=== PATIENT | male | born 1955 | race Caucasian/White ===

== ENCOUNTER 2017-01-03 13:20 | Day surgery (SDC) | payer OTHER ==
[~2017-01-03 13:20] MED LIST: Buffered Lidocaine 0.9% SYRIN* 5 ML/SYR SYRINGE INTRADERM ONE; Buffered Lidocaine 0.9% SYRIN* 5 ML/SYR SYRINGE ONE; Famotidine IV* 10 MG/ML 2 ML (20 mg) IV ONE; Famotidine IV* 10 MG/ML 2 ML (20 mg) ONE; ceFAZolin 2 GM PREMIX(*) 2 GM/50 ML BAG IVPB ONE
[2017-01-03] MEDS ORDERED: Midazolam* 1 MG/ML 5 ML VIAL (5 MG) ONE (15:05)
[2017-01-03] MEDS ORDERED: fentaNYL* 50 MCG/ML 2 ML VIAL (100 MCG VIAL) ONE (15:05)
[2017-01-03] MEDS ORDERED: Bupivacaine 0.5% W/EPI SDV* 30 ML VIAL ONE (16:25)
[2017-01-03] MEDS ORDERED: Lidocaine 1% INJ* 10 MG/ML 30 ML SDV ONE (16:25)
[2017-01-03] MEDS ORDERED: Midazolam* 1 MG/ML 2 ML VIAL (2 MG) ONE (16:54)
[2017-01-03] MEDS ORDERED: KETAMINE HCL* 50 MG/ML 10 ML VIAL ONE (16:56)
[2017-01-03] MEDS ORDERED: DiMENhydriNATE IV* 50 MG/ML VIAL IV PUSH PRN (17:05)
[2017-01-03] MEDS ORDERED: oxyCODONE TAB* 5 MG TAB PO PRN (17:05)
[2017-01-03] MEDS ORDERED: HYDROmorphone* 1 MG/ML 1 ML SYR IV PRN (17:05)
[2017-01-03] MEDS ORDERED: Acetaminophen TAB* 325 MG PO PRN (17:05)
[2017-01-03] MEDS ORDERED: Propofol* 10 MG/ML 20 ML BTL IV PUSH ONE (17:09)
[2017-01-03] MEDS ORDERED: Lidocaine 2% PF * 5 ML VIAL ONE (17:09)
[2017-01-03] MEDS ORDERED: Ondansetron INJ* 2 MG/ML VIAL ONE (17:09)
[2017-01-03] MEDS ORDERED: Ketorolac INJ* 30 MG/ML 1 ML VIAL ONE (17:09)
--- NOTE | 2017-01-03 17:39 | SURGPN ---
Brief Operative Note - Surgery Procedures: Procedures OPERATIVE REPORT PRE-OP: Umbilical hernia POST-OP: Same PROCEDURE: Open repair with 6.[address] Hernia patch SURGEON: MD Tigre ANESTHESIA:Local with MAC Dr. Anderson ASST: DEBBIE Nunez IVF: 1 liter of crystalloid EBL: min SPECIMEN: none DRAIN: none WOUND CLASS: One COMPLICATIONS: none TO PACU
[2017-01-03 19:08] VITALS: BP 138/72
--- NOTE | 2017-01-04 08:46 | OP ---
CC: [facility]; Ryne Carvajal MD * DATE OF OPERATION: 01/03/17 - [facility] DATE OF : 57 SURGEON: Nghia Landeros MD DOT NET ARCHITECT: DEBBIE Gilmore ANESTHESIOLOGIST: Lottie Anderson MD ANESTHESIA: Local with monitored anesthesia care. PRE-OP DIAGNOSIS: Umbilical hernia. POST-OP DIAGNOSIS: Umbilical hernia. OPERATIVE PROCEDURE: Open repair with a 6.[address] Ventralex mesh placed intraperitoneally. ESTIMATED BLOOD LOSS: Minimal. SPECIMENS: None. WOUND CLASSIFICATION: I. COMPLICATIONS: None. DRAINS: None. DESCRIPTION OF PROCEDURE: Written and informed consent was obtained and the abdomen was marked with indelible ink and preoperative antibiotics were administered. The patient was taken to the operating room and placed in the supine position. Sequential compression devices and a warming blanket were applied. The abdomen was prepped and draped in a usual sterile fashion. Time-out verification was completed. Next, a 0.25% Marcaine was infiltrated just below the umbilicus in a circumferential area around the umbilicus. A semi-circular incision was made inferior to the umbilical curve and carried down to the fascia inferior to the umbilical stock. The stock was then encircled with a [id number] Elena drain and the skin was excised off hernia sac. We entered the peritoneum at this point and the skin was protected. The fascial edges appear to be no more than about 2 cm diameter defect. There was also a small fascial defect slightly inferior to the hernia and this was closed with a simple 0 Polysorb suture. Due to the rather thin appearance of the fascia in the size, a mesh was placed intraperitoneally. This 6.4 cm circular mesh and was sutured into position intraperitoneally with 4 separate 0 Polysorb horizontal mattress using the strap and mesh envelope in the usual fashion. I used the Securestrap to staple the mesh to the anterior abdominal wall in the spaces between the sutures. Hemostasis was assured. The ruby fascia was then closed over the mesh in a transverse orientation with interrupted 0 Polysorb suture. Additional marking was infiltrated. The skin and subcutaneous tissue was closed in layers of 3-0 and 4-0 Polysorb. Steri-strips and sterile dressings were applied. The patient tolerated the procedure well, was taken to the recovery room in stable condition. [id number]/[facility] #: [id number] RADHA
== END 2017-01-03 19:07 | disposition home or self-care (01) ==
LOC: OR 13:20
PROVIDERS: ATTEND Surgery
DX: K42.9 Umbilical hernia without obstruction or gangrene (principal); I10 Essential (primary) hypertension; Z85.820 Personal history of malignant melanoma of skin
CPT/HCPCS: C1776; C1781; J0690; J1885; J2001; J2250; J2405; J2704; J3010

== ENCOUNTER 2017-01-18 17:49 | Emergency (ER) | payer OTHER ==
[2017-01-18 17:55] VITALS: BP 143/75
[2017-01-18] MEDS ORDERED: predniSONE TAB* 20 MG PO ONE (20:50)
--- NOTE | 2017-01-18 21:02 | UC ---
Lower Extremity/Ankle HPI - HPI Summary HPI Summary: PAST HISTORY OF GOUT. FOUR DAYS OF WORSENING RIGHT GREAT TOE TENDERNESS REDNESS AND MILD SWELLING. PAIN AT KNUCKLES OF TOE. NO TRAUMA. - History of Current Complaint Chief Complaint: UCLowerExtremity Stated Complaint: LEFT ANKLE AND TOE COMPLAINT Time Seen by Provider: 01/18/17 19:50 Hx Obtained From: Patient, Family/Coke Crane Operator Onset/Duration: Gradual Onset, Lasting Days, Worse Since - DAILY Severity Initially: Mild Severity Currently: Moderate Aggravating Factor(s): Standing, Ambulation, Other - TOUCH Alleviating Factor(s): Nothing Able to Bear Weight: Yes - Risk Factors Gout Risk Factors: Age Over 40, Male DVT Risk Factors: Negative Septic Arthritis Risk Factor: Negative - Allergies/Home Medications Allergies/Adverse Reactions: Allergies Allergy/AdvReac Type Severity Reaction Status Date / Time Pravastatin [From Pravachol] Allergy Severe hives, Verified 01/03/17 12:27 swelling PMH/Surg Hx/FS Hx/Imm Hx Previously Healthy: Yes Other History Of: Negative For: Anticoagulant Therapy - Surgical History Surgical History: Yes Surgery Procedure, Year, and Place: lt hip replacement 2010. right hand/wrist ganglion cyst 2000. melanoma 2006. colonoscopies - Family History Known Family History: Positive: Other - GOUT - Social History Occupation: Employed Full-time Lives: With Family Alcohol Use: Weekly Alcohol Amount: approx. 1-4 beer most days Substance Use Type: None Smoking Status (MU): Never Smoked Tobacco Review of Systems Constitutional: Negative Skin: Rash - RIGHT GREAT TOE Eyes: Negative ENT: Negative Respiratory: Negative Cardiovascular: Negative Gastrointestinal: Negative Genitourinary: Negative Motor: Negative Neurovascular: Negative Musculoskeletal: Arthralgia - RIGHT GREAT TOE, Myalgia Neurological: Negative Psychological: Negative All Other Systems Reviewed And Are Negative: Yes Physical Exam Triage Information Reviewed: Yes Appearance: Well-Appearing, Well-Nourished, Pain Distress - MILD Vital Signs: Initial Vital Signs Temp 99.3 F 01/18/17 17:52 Pulse 82 01/18/17 17:52 Resp 18 01/18/17 17:52 BP 143/75 01/18/17 17:52 Pulse Ox 99 01/18/17 17:52 Vital Signs Reviewed: Yes Eye Exam: Normal ENT Exam: Normal ENT: Positive: Normal ENT inspection, Hearing grossly normal, TMs normal Dental Exam: Normal Neck exam: Normal Neck: Positive: Supple, Nontender, No Lymphadenopathy Respiratory Exam: Normal Respiratory: Positive: Chest non-tender, Lungs clear, Normal breath sounds, No respiratory distress, No accessory muscle use Cardiovascular Exam: Normal Cardiovascular: Positive: RRR, No Murmur, Pulses Normal Abdominal Exam: Normal Musculoskeletal: Positive: Strength Intact, ROM Intact, Other: - WARMTH TENDERNESS ERRYTHEMA MILD EDEMA RIGHT GREAT TOE Neurological Exam: Normal Psychological Exam: Normal Skin Exam: Normal Lower Extremity Course/Dx - Differential Dx/Diagnosis Differential Diagnosis/HQI/PQRI: Cellulitis, Gout, Sprain, Strain Provider Diagnoses: GOUT RIGHT GREAT TOE Discharge - Discharge Plan Condition: Stable Disposition: HOME Prescriptions: Colchicine* [Colcrys*] 0.6 mg PO DAILY #3 tab Patient Education Materials: Low Purine Diet (ED), Gout (ED) Referrals: Ryne Carvajal MD [Primary Care Provider] -
[2017-01-19 11:06] LABS: Hematocrit 42 % (42-52); Hemoglobin 13.5 g/dl (14.0-18.0); Mean Corpuscular HGB Conc 33 g/dl (31-36); Mean Corpuscular Hemoglobin 29 pg (27-31); Mean Corpuscular Volume 90 fL (80-94); Mean Platelet Volume 8 um3 (7.4-10.4); Red Cell Distribution Width 13 % (10.5-15); White Blood Count 12.1 10^3/ul (3.5-10.8)
== END 2017-01-18 21:15 | disposition home or self-care (01) ==
LOC: UCEAST 17:49
DX: M10.9 Gout, unspecified (principal)
CPT/HCPCS: 36415; 84550; 85025; 99212; G0463; J7512

== ENCOUNTER 2017-04-03 19:36 | Emergency (ER) | payer OTHER ==
[2017-04-03 20:09] VITALS: BP 169/91
[2017-04-03] MEDS ORDERED: predniSONE TAB* 20 MG PO ONE (20:33)
[2017-04-03] MEDS ORDERED: diPHENhydraMINE PO* 50 MG PO ONE (20:33)
--- NOTE | 2017-04-03 20:38 | UC ---
Skin Complaint HPI - HPI Summary HPI Summary: raised red itching area behind left ear, some on left shoulder and arm - History of Current Complaint Chief Complaint: UCSkin Time Seen by Provider: 04/03/17 20:24 Stated Complaint: INSECT BITE Hx Obtained From: Patient Onset/Duration: Sudden Onset, Lasting Days - 1, Still Present Timing: Constant Onset Severity: Moderate Current Severity: Moderate Location: Discrete Character: Pruritus, Hives, Redness, Raised Aggravating: Nothing Alleviating: Nothing Associated Signs & Symptoms: Positive: Negative, Rash Related History: Insect Bite/Sting - Allergy/Home Medications Allergies/Adverse Reactions: Allergies Allergy/AdvReac Type Severity Reaction Status Date / Time Pravastatin [From Pravachol] Allergy Severe hives, Verified 04/03/17 20:09 swelling Review of Systems Constitutional: Negative Skin: Rash - behind left ear, left shoulder, arm Eyes: Negative ENT: Negative Respiratory: Negative Cardiovascular: Negative Gastrointestinal: Negative Genitourinary: Negative Motor: Negative Neurovascular: Negative Musculoskeletal: Negative Neurological: Negative Psychological: Negative All Other Systems Reviewed And Are Negative: Yes PMH/Surg Hx/FS Hx/Imm Hx Previously Healthy: No Endocrine History: Dyslipidemia Cardiovascular History: Hypertension Other History Of: Negative For: Anticoagulant Therapy - Surgical History Surgical History: Yes Surgery Procedure, Year, and Place: lt hip replacement 2010. right hand/wrist ganglion cyst 1999. melanoma 2006. colonoscopies, HERNIA REPAIR 12/2016 - Family History Known Family History: Positive: Other - GOUT - Social History Occupation: Employed Full-time Lives: With Family Alcohol Use: Occasionally Alcohol Amount: approx. 1-4 beer most days Substance Use Type: None Smoking Status (MU): Never Smoked Tobacco Physical Exam Triage Information Reviewed: Yes Appearance: Well-Appearing, No Pain Distress, Well-Nourished Vital Signs: Initial Vital Signs Temp 97.7 F 04/03/17 20:05 Pulse 73 04/03/17 20:05 Resp 16 04/03/17 20:05 BP 169/91 04/03/17 20:05 Pulse Ox 99 04/03/17 20:05 Vital Signs Reviewed: Yes Eye Exam: Normal Eyes: Positive: Conjunctiva Clear ENT Exam: Normal ENT: Positive: Normal ENT inspection, Hearing grossly normal, TMs normal. Negative: Nasal congestion, Nasal drainage, Trismus, Muffled/hoarse voice Dental Exam: Normal Neck exam: Normal Neck: Positive: Supple, Nontender, No Lymphadenopathy Respiratory Exam: Normal Respiratory: Positive: Chest non-tender, No respiratory distress, No accessory muscle use Cardiovascular Exam: Normal Cardiovascular: Positive: RRR, Pulses Normal, Brisk Capillary Refill Musculoskeletal Exam: Normal Musculoskeletal: Positive: Strength Intact, ROM Intact, No Edema Neurological Exam: Normal Neurological: Positive: Alert Psychological Exam: Normal Psychological: Positive: Normal Response To Family Skin Exam: Other Skin: Positive: rashes Course/Dx - Course Course Of Treatment: prednisone, benadryl, cool compress, follow bp with pcp in next 1-2 weeks - Differential Diagnoses - Skin Complaint Differential Diagnoses: Cellulitis, Contact Dermatitis, Local Allergic Reaction , Systemic Illness, Tick Born Illness - Diagnoses Provider Diagnoses: Localized allergic response posterior left ear, left shoulder, left arm Discharge - Discharge Plan Condition: Stable Disposition: HOME Prescriptions: predniSONE TAB* [Deltasone TAB*] 20 mg PO DAILY #15 tab Patient Education Materials: Prednisone (By mouth), Diphenhydramine (By mouth) , Contact Dermatitis (ED), Hypertension (ED) Referrals: Ryne Carvajal MD [Primary Care Provider] - 2 Weeks
== END 2017-04-03 21:03 | disposition home or self-care (01) ==
LOC: UCEAST 19:36
DX: T63.481A Toxic effect of venom of other arthropod, accidental (unintentional), initial encounter (principal); L50.9 Urticaria, unspecified; Y92.9 Unspecified place or not applicable; E78.5 Hyperlipidemia, unspecified; I10 Essential (primary) hypertension; Z96.642 Presence of left artificial hip joint; Z85.820 Personal history of malignant melanoma of skin
CPT/HCPCS: 99212; A9270-GY; G0463; J7512

== ENCOUNTER 2019-04-30 17:54 | Emergency (ER) | payer OTHER ==
--- OUTSIDE RECORDS SUMMARY | 2019-04-30 19:42 | XMS REPORT | Continuity of Care Document ---
:1955 External Reference #:[id number] Author Name DEBBIE Juares Address [address] [place] [address] Care Team Providers Name Role Phone Festus Major MD - Orthopaedic Care Team Information Director Corporate [phone] Surgery Ryne Carvajal MD - Family Medicine Care Team Information Director Corporate Nghia Landeros - Surgery Care Team Information Director Corporate [phone] Problems Active Problems Provider Date Pure hypercholesterolemia Ryne Carvajal M.D. Onset: 08/10/2006 Benign essential hypertension Ryne Carvajal M.D. Onset: 08/10/2006 Benign prostatic hypertrophy without outflow Ryne Carvajal M.D. Onset: 05/2007 obstruction Malignant melanoma of skin Ryne Carvajal M.D. Onset: 08/09/2007 Gout Ryne Carvajal M.D. Onset: 07/23/2009 Sprain of costal cartilage Ryne Carvajal M.D. Onset: 11/17/2011 Hyperlipidemia Ryne Carvajal M.D. Onset: 05/30/2013 Essential hypertension Ryne Carvajal M.D. Onset: 06/04/2015 Mixed hyperlipidemia Ryne Carvajal M.D. Onset: 06/04/2015 Benign neoplasm of colon Ryne Carvajal M.D. Onset: 12/03/2015 Social History Type Date Description Comments Sex Unknown Tobacco Use Start: Unknown Nonsmoker Tobacco Use Start: Unknown End: Unknown Patient is a former smoker Smoking Status Reviewed: 04/09/19 Patient is a former smoker Allergies, Adverse Reactions, Alerts Active Allergies Reaction Severity Comments Date Pravachol Generic Pravastatin - 04/06/2006 Rash Amlodipine swelling of face, swelling face, hands, 07/04/2017 hands, feet feet Metoprolol ? swelling, headache 12/12/2017 Medications Active Medications SIG Qnty Indications Ordering Provider Date Candesartan Cilexetil Take 1 tablet 30tabs I10 Ryne ARiaz Wei, 04/09/2019 nightly. M.D. 16mg Tablets Candesartan Cilexetil 1 by mouth every 30tabs I10 Ryne ARiaz Carvajal, 2018 8mg day in the M.D. Tablets evening Rosuvastatin Calcium 1 by mouth every 90tabs Ryne Carvajal, 06/09/2016 5mg day M.D. Tablets Ecasa 1 qd Ryne Carvajal, 325mg M.D. Immunizations CPT Code Status Date Vaccine Lot # [id number] Given 12/08/2016 Zostivax [id number] Given 03/19/2009 Tdap Tetanus, W Pertussis [id number] Vital Signs Date Vital Result Comment 04/09/2019 2:37pm BP Systolic 192 mmHg BP Diastolic 94 mmHg BP Systolic Recheck 180 mmHg BP Diastolic Recheck 82 mmHg Heart Rate 84 /min Body Temperature 98.2 F Height 61.5 inches 5'1.50" Weight 182.00 lb BMI (Body Mass Index) 33.8 kg/m2 03/26/2019 3:34pm BP Systolic 144 mmHg BP Diastolic 86 mmHg Heart Rate 76 /min Respiratory Rate 16 /min Height 61.5 inches 5'1.50" Weight 181.00 lb BMI (Body Mass Index) 33.6 kg/m2 Results Test Date Facility Test Result H/L Range Note Comprehensive Metabolic 03/12/2019 [facility]) Sodium 137 mEq/L 134-149 Prof Potassium 3.8 mEq/L 3.6-5.5 Chloride 103 mEq/L 94-112 Carbon Dioxide 25 mEq/L 21-32 Glucose 99 mg/dL 70-105 BUN 21 mg/dL 6-26 Creatinine 1.1 mg/dL 0.6-1.4 BUN/Creat Ratio 19.1 CALC 8.0-36.0 Calcium 9.7 mg/dL 8.6-10.2 Total Protein 7.7 g/dL 6.4-8.3 Albumin 5.0 g/dL 3.8-5.5 Globulin 2.7 g/dL 2.0-4.8 A/G Ratio 1.9 CALC 0.6-2.3 Alk. Phosphatase 60 U/L 22-95 Alt (SGPT) 25 U/L 7-35 Ast (Sgot) 25 U/L 5-34 Total Bilirubin 1.0 mg/dL 0.2-1.3 GFR Non- >60 ml/min/1.73m^ >=60 GFR >60 ml/min/1.73m^ >=60 Laboratory test 03/12/2019 [facility]) TSH 4.07 mIU/L 0.50-6.00 finding Lipid Profile 03/12/2019 [facility]) Cholesterol 264 mg/dL High 120-200 Triglycerides 282 mg/dL High 30-200 HDL Cholesterol 35 mg/dL 30-70 LDL (Calculated) 173 CALC High 0-129 VLDL Cholesterol 56 mg/dL High 0-50 HDL Risk Factor 7.5 CALC High 0.0-4.4 Laboratory test finding 03/12/2019 [facility]) PSA 1.8 ng/mL 0.0 -4.0 CBC Electronic [facility] 03/12/2019 [facility](a) WBC 8.5 x10^3/UL 4.0- 10.0 RBC 4.94 x10^6/UL 3.93-6.00 HGB 15.2 g/dL 12.0-17.0 HCT 44 % 35-50 MCV 89.1 fL 80.0-95.0 MCH 30.8 pg 25.6-32.2 MCHC 34.5 g/dL 32.2-36.0 RDW-CV 12.0 % 11.6-14.4 PLT 202 x10^3/UL 163-400 MPV 9.1 fL Low 9.4-12.4 Chad# 4.30 x10^3/UL 1.56-6.13 Lymph# 3.30 x10^3/UL 1.18-3.74 Long# 0.52 x10^3/UL 0.24-0.82 Eos # 0.3 x10^3/UL 0.0-0.5 Baso # 0.07 x10^3/UL 0.01-0.08 Chad% 50.7 % 34.0-70.0 Lymph % 38.8 % 20.0-52.0 Long% 6.1 % 5.0-12.0 Eos% 3.5 % 0.7-7.0 Baso% 0.8 % 0.1-1.2 Laboratory test 03/12/2019 [facility](a) LDL, Direct 150 mg/dL High 0-130 finding Laboratory test 10/12/2018 [facility] Hemoglobin A1c 5.3 % % 4.1- 5.7 finding (607)- - (Fma) Comprehensive 10/12/2018 [facility](a) Sodium 141 mEq/L 134-149 Metabolic Prof Potassium 4.9 mEq/L 3.6-5.5 Chloride 100 mEq/L 94-112 Carbon Dioxide 27 mEq/L 21-32 Glucose 123 mg/dL High 70-105 1 BUN 25 mg/dL 6-26 Creatinine 1.1 mg/dL 0.6-1.4 BUN/Creat Ratio 22.7 CALC 8.0-36.0 Calcium 10.2 mg/dL 8.6-10.2 Total Protein 7.6 g/dL 6.4-8.3 Albumin 5.1 g/dL 3.8-5.5 Globulin 2.5 g/dL 2.0-4.8 A/G Ratio 2.0 CALC 0.6-2.3 Alk. Phosphatase 58 U/L 22-95 Alt (SGPT) 32 U/L 7-35 Ast (Sgot) 23 U/L 5-34 Total Bilirubin 0.7 mg/dL 0.2-1.3 GFR Non- >60 ml/min/1.73m^ >=60 GFR >60 ml/min/1.73m^ >=60 Lipid Profile 10/12/2018 [facility](a) Cholesterol 204 mg/dL High 120-200 Triglycerides 180 mg/dL 30-200 HDL Cholesterol 38 mg/dL 30-70 LDL (Calculated) 130 CALC High 0-129 VLDL Cholesterol 36 mg/dL 0-50 HDL Risk Factor 5.4 CALC High 0.0-4.4 1 RESULTS VERIFIED BY REPEAT ANALYSIS Procedures Date Code Description Status 10/04/2017 [id number] Colonoscopy Completed 09/19/2012 [id number] Colonoscopy Completed 09/12/2007 [id number] Colonoscopy Completed Medical Devices Description No Information Available Encounters Type Date Location Provider Dx Diagnosis Office Visit 03/26/2019 [facility] Office Ryne Carvajal, I10 Essential ( primary) 3:30p M.D. hypertension Office Visit 03/12/2019 [facility] Office Ryne Carvajal, I10 Essential ( primary) 4:10p M.D. hypertension E78.2 Mixed hyperlipidemia N40.0 Benign prostatic hyperplasia without lower urinry tract symp E78.1 Pure hyperglyceridemia Assessments Date Code Description Provider 04/09/2019 I10 Essential (primary) hypertension DEBBIE Juares 03/26/2019 I10 Essential (primary) hypertension Ryne Carvajal M.D. 03/12/2019 I10 Essential (primary) hypertension Ryne Carvajal M.D. 03/12/2019 E78.2 Mixed hyperlipidemia Ryne Carvajal M.D. 03/12/2019 N40.0 Benign prostatic hyperplasia without lower Ryne Carvajal M.D. urinary tract sym 03/12/2019 E78.1 Pure hyperglyceridemia Ryne Carvajal M.D. 10/12/2018 E78.2 Mixed hyperlipidemia Ryne Carvajal M.D. 10/12/2018 R73.09 Other abnormal glucose Ryne Carvajal M.D. Plan of Treatment Future Appointment(s):04/23/2019 3:30 pm - DEBBIE Juares at [facility]04/09/2019 - Zabrina George PAI10 Essential (primary) hypertensionNew Medication:Candesartan Cilexetil 16 mg - Take 1 tablet nightly.Comments: Increase Candesartan to 16 mg nightly. Call with any side effects Follow up in 2 weeksAllComments:PCMHMedication Management Patient Understands medications he 's taking? Yes Are there Barriers to Adherence? No Has the patient been asked about herbal supplements and therapies, and OTC meds? Yes Care Plan1. Patient has been queried about patient's goals/preferences and functional/lifestyle goals at relevant visits. Yes If relevant, describe: N/A2. Treatment goals as explained to the patient: above3. Are there barriers to meeting treatment goals? No If Yes, please describe:4. Self-Management goals as described to the patient: Yes As always, we strongly encourage a healthy diet and making physical activity a part of your every day life. If you have questions about how or where to start, please contact the office. Functional Status Description No Information Available Mental Status Description No Information Available Referrals Description No Information Available
--- OUTSIDE RECORDS SUMMARY | 2019-04-30 19:42 | XMS REPORT | Continuity of Care Document ---
:1955 External Reference #:[id number] Author Name DEBBIE Juares Address [address] [place] [address] Care Team Providers Name Role Phone Festus Major MD - Orthopaedic Care Team Information Financial Reporting Specialist Surgery Ryne Carvajal MD - Family Medicine Care Team Information Financial Reporting Specialist [phone] Nghia Landeros - Surgery Care Team Information Financial Reporting Specialist [phone] Problems Active Problems Provider Date Pure hypercholesterolemia [...] is a former smoker Smoking Status Reviewed: 04/23/19 Patient is a former smoker Allergies, Adverse [...] by mouth every 30tabs I10 Ryne ARiaz Silvalow, 2018 8mg day in the M.D. Tablets evening Rosuvastatin Calcium 1 by mouth every 90tabs Ryne Carvajal, 06/09/2016 5mg day M.D. Tablets Ecasa 1 qd Ryne Carvajal, 325mg M.D. Immunizations CPT Code Status Date Vaccine Lot # [id number] Given 12/08/2016 Zostivax [id number] Given 03/19/2009 Tdap Tetanus, W Pertussis [id number] Vital Signs Date Vital Result Comment 04/23/2019 3:45pm BP Systolic 154 mmHg BP Diastolic 76 mmHg BP Systolic Recheck 145 mmHg BP Diastolic Recheck 84 mmHg Heart Rate 80 /min Body Temperature 97.9 F Respiratory Rate 12 /min Height 61.5 inches 5'1.50" Weight 182.00 lb BMI (Body Mass Index) 33.8 kg/m2 04/09/2019 2:37pm BP Systolic 192 mmHg BP Diastolic 94 mmHg BP Systolic Recheck 180 mmHg BP Diastolic Recheck 82 mmHg Heart Rate 84 /min Body Temperature 98.2 F Height 61.5 inches 5'1.50" Weight 182.00 lb BMI (Body Mass Index) 33.8 kg/m2 Results Test Date Facility Test Result [...] >60 ml/min/1.73m^ >=60 Laboratory test 03/12/2019 [facility]) TSH 4.07 mIU/L 0.50-6.00 finding Lipid Profile 03/12/2019 [facility](a) Cholesterol 264 mg/dL High 120-200 Triglycerides 282 mg/dL High 30-200 HDL Cholesterol 35 mg/dL 30-70 LDL (Calculated) 173 CALC High 0-129 VLDL Cholesterol 56 mg/dL High 0-50 HDL Risk Factor 7.5 CALC High 0.0-4.4 Laboratory test finding 03/12/2019 [facility]) PSA 1.8 ng/mL 0.0 -4.0 CBC Electronic [facility] 03/12/2019 [facility](a) WBC 8.5 x10^3/UL 4.0- 10.0 RBC 4.94 x10^6/UL 3.93-6.00 HGB 15.2 g/dL 12.0-17.0 HCT 44 % 35-50 MCV 89.1 fL 80.0-95.0 MCH 30.8 pg 25.6-32.2 MCHC 34.5 g/dL 32.2-36.0 RDW-CV 12.0 % 11.6-14.4 PLT 202 x10^3/UL 163-400 MPV 9.1 fL Low 9.4-12.4 Chad# 4.30 x10^3/UL 1.56-6.13 Lymph# 3.30 x10^3/UL 1.18-3.74 Erath# 0.52 x10^3/UL 0.24-0.82 Eos # 0.3 x10^3/UL 0.0-0.5 Baso # 0.07 x10^3/UL 0.01-0.08 Chad% 50.7 % 34.0-70.0 Lymph % 38.8 % 20.0-52.0 Erath% 6.1 % 5.0-12.0 Eos% 3.5 % 0.7-7.0 Baso% 0.8 % 0.1-1.2 Laboratory test 03/12/2019 [facility]) LDL, Direct 150 mg/dL High 0-130 finding Procedures Date Code Description Status 10/04/2017 [id number] Colonoscopy Completed 09/19/2012 [id number] Colonoscopy Completed 09/12/2007 [id number] Colonoscopy Completed Medical Devices Description No Information Available Encounters Type Date Location Provider Dx Diagnosis Office Visit 04/09/2019 [facility] Office Breanna Juares Essential ( primary) 2:45p PA hypertension Office Visit 03/26/2019 [facility] Office Breanna Miranda Essential ( primary) 3:30p M.D. hypertension Office Visit 03/12/2019 [facility] Office Breanna Miranda Essential ( primary) 4:10p M.D. hypertension E78.2 Mixed hyperlipidemia N40.0 Benign prostatic hyperplasia without lower urinry tract symp E78.1 Pure hyperglyceridemia Assessments Date Code Description Provider 04/23/2019 I10 Essential (primary) hypertension DEBBIE Juares 04/09/2019 I10 Essential (primary) hypertension DEBBIE Juares 03/26/2019 I10 Essential (primary) hypertension Ryne Carvajal M.D. 03/12/2019 I10 Essential (primary) hypertension Ryne Carvajal M.D. 03/12/2019 E78.2 Mixed hyperlipidemia Ryne Carvajal M.D. 03/12/2019 N40.0 Benign prostatic hyperplasia without lower Ryne Carvajal M.D. urinary tract sym 03/12/2019 E78.1 Pure hyperglyceridemia Ryne Carvajal M.D. Plan of Treatment Future Appointment(s):05/23/2019 3:30 pm - DEBBIE Juares at [facility] Hbsbhd5104/23/2019 - Zabrina George PAI10 Essential (primary) hypertensionComments:Continue Candesartan 16 mg nightly. Call with any side effects Follow up in 1 month for repeat check.AllComments:PCMHMedication Management Patient Understands medications he's taking? Yes Are there Barriers to Adherence? No Has the patient been asked about herbal supplements and therapies, and OTC meds? Yes Care Plan1. Patient has been queried about patient's goals/preferences and functional/lifestyle goals at relevant visits. Yes If relevant, describe: N/A2. Treatment goals as explained to the patient: above3. Are there barriers to meeting treatment goals ? No If Yes, please describe:4. Self-Management goals [...]
[2019-04-30 20:03] VITALS: BP 154/81
--- NOTE | 2019-04-30 20:20 | UC ---
Elbow Pain - HPI Summary HPI Summary: 63-year-old male presents with complaints of right elbow redness, pain, and swelling. States 5 days ago he accidentally hit the tip of his elbow on a door casing. Initially had some mild tenderness however over the past 2-3 days he has started developing redness to the posterior elbow, increased tenderness, and swelling of the proximal forearm. States pain is worse with external rotation especially when it comes resistance. Has history of gout of the elbow. Denies fever, chills, numbness, or tingling. - History of Current Complaint Chief Complaint: UCUpperExtremity Stated Complaint: RIGHT ELBOW PAIN Time Seen by Provider: 04/30/19 19:48 Hx Obtained From: Patient Pain Intensity: 3 - Allergies/Home Medications Allergies/Adverse Reactions: Allergies Allergy/AdvReac Type Severity Reaction Status Date / Time pravastatin [From Pravachol] Allergy Rash Verified 04/30/19 19:47 Home Medications: Home Medications Cilexetil 16 mg PO QPM 04/30/19 [History Confirmed 04/30/19] Naproxen Sodium [Aleve] 440 mg PO ONCE PRN 04/30/19 [History Confirmed 04/30/19] PMH/Surg Hx/FS Hx/Imm Hx - Additional Past Medical History Additional PMH: Gout Endocrine History: Dyslipidemia Cardiovascular History: Hypertension Other History Of: Negative For: Anticoagulant Therapy - Surgical History Surgical History: Yes Surgery Procedure, Year, and Place: lt hip replacement 2010. right hand/wrist ganglion cyst 1999. melanoma 2006. colonoscopies, HERNIA REPAIR 12/2016 - Family History Known Family History: Positive: Other - GOUT - Social History Occupation: Employed Full-time Lives: With Family Alcohol Use: Occasionally Alcohol Amount: approx. 1-4 beer most days Substance Use Type: None Smoking Status (MU): Former Smoker Review of Systems All Other Systems Reviewed And Are Negative: Yes Constitutional: Negative: Fever, Chills Skin: Positive: Other - Erythema rigth elbow Respiratory: Positive: Negative Cardiovascular: Positive: Negative Gastrointestinal: Positive: Negative Genitourinary: Positive: Negative Motor: Negative: Weakness Neurovascular: Negative: Decreased Sensation Musculoskeletal: Positive: Other: - HPISee Neurological: Positive: Negative Is Patient Immunocompromised?: No Physical Exam - Summary Physical Exam Summary: GENERAL APPEARANCE: Well developed, well nourished, alert and cooperative, and appears to be in no acute distress. CARDIAC: Normal S1 and S2. No S3, S4 or murmurs. Rhythm is regular. There is no peripheral edema, cyanosis or pallor. Extremities are warm and well perfused. Capillary refill is less than 2 seconds. Peripheral pulses intact. LUNGS: Clear to auscultation without rales, rhonchi, wheezing or diminished breath sounds. ABDOMEN: Positive bowel sounds. Soft, nondistended, nontender. No guarding or rebound. No masses or hepatosplenomegally. MUSKULOSKELETAL: Normal muscular development. Normal gait. EXTREMITIES: Tenderness with erythema to the posterior right elbow. No lesions or gross deformity noted. Mild edema noted to the elbow and proximal forearm. ROM slightly limited with full extension. Circulation and sensation intact. SKIN: Skin normal color, texture and turgor. Triage Information Reviewed: Yes Vital Signs: Initial Vital Signs Temp 98.8 F 04/30/19 19:52 Pulse 76 04/30/19 19:52 Resp 20 04/30/19 19:52 BP 154/81 04/30/19 19:52 Pulse Ox 97 04/30/19 19:52 Vital Signs Reviewed: Yes Elbow Pain Course/Dx - Course Course Of Treatment: 63-year-old male presents with complaints of right elbow redness, pain, and swelling. States 5 days ago he accidentally hit the tip of his elbow on a door casing. Initially had some mild tenderness however over the past 2-3 days he has started developing redness to the posterior elbow, increased tenderness, and swelling of the proximal forearm. States pain is worse with external rotation especially when it comes resistance. Has history of gout of the elbow. Reports previous distal right bicep rupture. Denies fever, chills, numbness, or tingling. Afebrile. Hypertensive otherwise vital signs stable. Patient had tenderness with erythema to the posterior right elbow. No lesions or gross deformity noted. Mild edema noted to the elbow and proximal forearm. ROM slightly limited with full extension. Circulation and sensation intact. X- ray showed no acute fracture or dislocation. There was a lesion noted to the metaphysis of the proximal radius that does not correlate with daily patient's present symptoms and may be related to his previous injury. I reviewed the results with the patient and discussed that his symptoms are likely traumatic olecranon bursitis although I cannot fully rule out gout as the cause as well. We will treat conservatively with NSAIDs and RICE. He is to follow-up with orthopedic surgery in 5-7 days if symptoms do not improve. Anticipatory guidance and warning symptoms were reviewed with the patient. Verbalized understanding and agrees with plan of care. - Differential Dx/Diagnosis Differential Diagnosis/HQI/PQRI: Bursitis, Cellulitis, Fracture (Closed), Infection, Sprain, Other - Gout Provider Diagnosis: Olecranon bursitis, right elbow Discharge ED - Sign-Out/Discharge Documenting (check all that apply): Patient Departure All imaging exams completed and their final reports reviewed: No - Discharge Plan Condition: Stable Disposition: HOME Prescriptions: Naproxen [Naproxen 500 mg tab] 500 mg PO BID #30 tablet Patient Education Materials: Elbow Bursitis (ED) Referrals: Ryne Carvajal MD [Primary Care Provider] - Héctor Phillip MD [Medical Doctor] - Additional Instructions: The x-ray performed in the clinic today showed no evidence of a fracture. The x- ray will be reviewed by the radiologist tomorrow and we will contact you if they see anything that changes your plan of care. Rest the elbow as much as possible. Apply ice to the affected area for 15-20 minutes at least 4 times a day to help with the pain and swelling. Use an CLAUDIO wrap or compression sleeve to help manage the swelling. Elevate the arm to help reduce swelling. Take naproxen 500 mg every 12 hours with food for the next 5 days then may take every 12 hours as needed for pain. Follow up with orthopedic surgery in 5-7 days if symptoms do not improve. Seek immediate medical attention if you have severe pain not managed with pain medication, you are unable to walk or bear any weight, develop numbness or tingling in the arm, hand, or fingers, or have any worsening of symptoms. - Billing Disposition and Condition Condition: STABLE Disposition: Home
--- NOTE | 2019-05-01 14:33 | UC ---
- Progress Note Progress Note: XRAY REPORT RIGHT ELBOW : SOFT TISSUE SWELLING, NO FRACTURE Course/Dx - Diagnoses Provider Diagnoses: Olecranon bursitis, right elbow Discharge ED - Sign-Out/Discharge Documenting (check all that apply): Patient Departure All imaging exams completed and their final reports reviewed: Yes - Discharge Plan Condition: Stable Disposition: HOME Prescriptions: Naproxen [Naproxen 500 mg tab] 500 mg PO BID #30 tablet Patient Education Materials: Elbow Bursitis (ED) Referrals: Héctor Phillip MD [Medical Doctor] - Ryne Carvajal MD [Primary Care Provider] - Additional Instructions: The x-ray performed in the clinic today showed no evidence of a fracture. The x- ray will be reviewed by the radiologist tomorrow and we will contact you if they see anything that changes your plan of care. Rest the elbow as much as possible. Apply ice to the affected area for 15-20 minutes at least 4 times a day to help with the pain and swelling. Use an CLAUDIO wrap or compression sleeve to help manage the swelling. Elevate the arm to help reduce swelling. Take naproxen 500 mg every 12 hours with food for the next 5 days then may take every 12 hours as needed for pain. Follow up with orthopedic surgery in 5-7 days if symptoms do not improve. Seek immediate medical attention if you have severe pain not managed with pain medication, you are unable to walk or bear any weight, develop numbness or tingling in the arm, hand, or fingers, or have any worsening of symptoms. - Billing Disposition and Condition Condition: STABLE Disposition: Home
== END 2019-04-30 20:59 | disposition home or self-care (01) ==
LOC: UCCORT 17:54
DX: M70.21 Olecranon bursitis, right elbow (principal); Y93.89 Activity, other specified; Z88.8 Allergy status to other drugs, medicaments and biological substances; I10 Essential (primary) hypertension; Z87.891 Personal history of nicotine dependence
CPT/HCPCS: 99212; G0463